=== PATIENT | female | born 1980 | race Caucasian/White ===

== ENCOUNTER 2016-09-01 19:04 | Day surgery (SDC) | payer BC ==
[2016-09-01] MEDS ORDERED: LIDOCAINE 1% 2 ML VIAL ID PRN (19:35)
[2016-09-01] MEDS ORDERED: LACTATED RINGERS 1,000 ML IV SCH (19:35)
[2016-09-01] MEDS ORDERED: LORAZEPAM 2 MG/ML 1ML SDV IV PRN (19:35)
[2016-09-01 20:00] VITALS: BMI 44.6
[2016-09-01] MEDS ORDERED: IV START KIT ONE (20:01)
[2016-09-01] MEDS ORDERED: PUMP TUBING ONE (20:06)
[2016-09-01] MEDS: HYDROCODONE/ACETAMINOPHEN 5/325MG TABLET PO PRN ×2 (20:10→23:24)
[2016-09-01] MEDS ORDERED: DIPHENHYDRAMINE HCL 50 MG/1 ML VIAL IV SCH (21:00)
[2016-09-01] MEDS ORDERED: MISOPROSTOL 200 MCG TABLET VG ONE (23:30)
[2016-09-02] MEDS ORDERED: OXYTOCIN IN LR 500 ML IV ONE ×3 (02:16→02:33)
[2016-09-02] MEDS ORDERED: LACTATED RINGERS 1,000 ML ONE (07:27)
[2016-09-02] MEDS ORDERED: FENTANYL 100 MCG/2 ML VIAL ONE (09:36)
[2016-09-02] MEDS ORDERED: MIDAZOLAM HCL 1 MG/ML 2ML VIAL ONE (09:36)
[2016-09-02] MEDS ORDERED: MISOPROSTOL 200 MCG TABLET ONE (09:39)
[2016-09-02] MEDS ORDERED: OXYTOCIN 10 UNITS/ML VIAL ONE ×2 (09:39→10:05)
[2016-09-02] MEDS ORDERED: METHYLERGONOVINE MALEATE 0.2 MG/ML 1ML AMP ONE (09:40)
[2016-09-02] MEDS ORDERED: PROPOFOL 20 ML IV ONE (09:48)
[2016-09-02] MEDS ORDERED: DEXAMETHASONE SOD PHOS 4 MG/1 ML VIAL ONE (09:48)
[2016-09-02] MEDS ORDERED: ONDANSETRON 4 MG/2ML 2 ML VIAL ONE (09:48)
[2016-09-02] MEDS ORDERED: CEFAZOLIN SODIUM 1,000 MG VIAL ONE (10:05)
[2016-09-02] MEDS ORDERED: LABETALOL HCL 5 MG/ML 20ML VIAL IV PRN (10:07)
[2016-09-02] MEDS ORDERED: ATROPINE SULFATE 0.4 MG/1 ML VIAL IV PRN (10:07)
[2016-09-02] MEDS ORDERED: HYDROMORPHONE HCL 1 MG/ML SYRINGE IV PRN (10:07)
[2016-09-02] MEDS ORDERED: MEPERIDINE 25 MG/ML SYRINGE IV PRN (10:07)
[2016-09-02] MEDS ORDERED: PROMETHAZINE HCL 25 MG/ML VIAL IM PRN (10:07)
[2016-09-02] MEDS ORDERED: HYDRALAZINE HCL 20 MG/1 ML VIAL IV PRN (10:07)
[2016-09-02] MEDS ORDERED: ONDANSETRON 4 MG/2ML 2 ML VIAL IV PRN (10:07)
[2016-09-02] MEDS ORDERED: FENTANYL 100 MCG/2 ML VIAL IV PRN (10:07)
[2016-09-02] MEDS ORDERED: NALOXONE HCL 0.4 MG/ML VIAL IV PRN (10:07)
[2016-09-02] MEDS ORDERED: LACTATED RINGERS 1,000 ML IV SCH ×2 (10:15→10:50)
--- NOTE | 2016-09-02 10:33 | PDOC36 ---
Provider Note Subject: GAS ENGINE MECHANIC note Note: Pt admitted overnight for misoprostol pretreatment for demise at 13w. 400mcg misoprostol placed PV, and pt then had passed tissue spontaneously at 2a. However still having some bleeding. Recommended to proceed with suction D& C to confirm that no further retained products remained. Procedure indication and risks have been reviewed prior to procedure.
[2016-09-02] MEDS ORDERED: OXYCODONE/ACETAMINOPHEN 5/325 MG TABLET PO PRN (10:50)
[2016-09-02] MEDS ORDERED: KETOROLAC TROMETHAMINE 30 MG/ML 1 ML VIAL IV PRN (10:50)
[2016-09-02 12:17] LABS: HEMATOCRIT 36.8 % (37.0-47.0); HEMOGLOBIN 12.3 gm/l (12.0-16.0); MEAN CELL VOLUME 88.9 fl (81.0-99.0); MEAN CORPUSCULAR HEMOGLOBIN 29.7 pg (27.0-31.0); MEAN CORPUSCULAR HGB CONC 33.4 g/dl (33.0-37.0)
[2016-09-02 13:32] VITALS: BP 119/69
--- NOTE | 2016-09-02 16:23 | HP ---
AILEEN SARMIENTO [id number] DATE OF ADMISSION: 09/01/2016 ADMITTING DIAGNOSIS: demise at 13 weeks of gestation. PROCEDURE: SUCTION DILATION AND CURETTAGE. HISTORY OF PRESENT ILLNESS: The patient is a 35-year-old G-2, P-1 who is 17 weeks by last menstrual period, as well as early obstetric ultrasound. The patient had a previous ultrasound at 12 weeks plus two days, with positive heart tones on 07/28/2016. The patient was subsequently followed, however, was seen in clinic complaining of spotting. Ultrasound in the office was inconclusive and therefore the patient was sent to diagnostic imaging where a demise was noted, with measurements of 13 weeks plus one day. The patient has had a history of caesarian section times one. The patient was subsequently admitted for pretreatment with misoprostol in preparation for suction dilation and curettage, and 400 mcg of misoprostol were then placed, however, subsequently the patient did end-up passing tissue consistent with fetus at 2:00 A.M., however, was still having some bleeding, and plans to proceed with suction dilatation and curettage for incomplete SAB. PAST ASSOCIATE ENGINEER HISTORY: The patient has had caesarian section times one. PAST MEDICAL HISTORY: Negative. ALLERGIES: The patient states she has allergies to Septra and amoxicillin. PHYSICAL EXAMINATION: GENERAL: The patient is alert and appropriate. HEART: Regular rate and rhythm. LUNGS: Clear to auscultation bilaterally. ABDOMEN: Nondistended and nontender. PELVIC: Cervix is slightly dilated. There is a minimal amount of bleeding at this time, however, no tissue at the cervical os. EXTREMITIES: Exam is normal. ASSESSMENT/PLAN: This is a G-2, P-1 with demise, status post incomplete SAB with misoprostol. We will proceed with dilatation and curettage to remove any remaining products of conception. The procedure, indications and risks have been reviewed including the risks of bleeding, infection and uterine perforation. Preoperative instructions and postoperative expectations have been reviewed. The patient is confirmed to have blood type of A+.
--- NOTE | 2016-09-03 00:15 | OP ---
AILEEN SARMIENTO [id number] DATE OF PROCEDURE: 09/02/2016 PREOPERATIVE DIAGNOSES: 1. demise at 13 weeks. 2. Incomplete SAB. POSTOPERATIVE DIAGNOSES: 1. demise at 13 weeks. 2. Incomplete SAB. PROCEDURE: SUCTION DILATATION AND CURETTAGE. SURGEON: Dr. Kris Thurston ANESTHESIA: General. ESTIMATED BLOOD LOSS: 100 mL COMPLICATIONS: None. OPERATIVE FINDINGS: Include a dilated cervix. There were products of conception noted upon suction curettage. OPERATIVE COURSE: The patient is taken to the OR and placed under general anesthesia. The patient was then placed in lithotomy and prepped and draped in a sterile fashion. The bladder was emptied with a straight catheter. A weighted speculum was then placed and the anterior cervix was grasped with a single tooth tenaculum. The cervix was already dilated and was therefore able to accommodate a #12 suction curette. A curette was then placed in the fundus and suction was then started, and using a rotating motion the intrauterine contents were withdrawn. There was clear white contents which were withdrawn at this time. This was repeated times two and then gentle sharp curettage was performed which revealed no further contents. There was no evidence of perforation. Therefore a second round of suction curettage was then performed. There was no further tissue. The instruments were then removed and the uterus was gently massaged. The patient was then recovered from anesthesia and taken to the recovery room in stable condition.
--- NOTE | 2016-09-06 15:42 | SURGPATH ---
[facility] [address] [place] [id number] Patient Name: AILEEN SARMIENTO MR#: [id number] : 1980 Gender: F Specimen #: [id number] Collected: 09/02/2016 Received: 09/05/2016 Reported: 09/06/2016 Submitting Phys: TR LOCKE Copy To Phys: [facility] Clinical History / Pre-Operative Diagnosis: DEMISE; MISSED Specimen Source / Surgical Procedure Performed: UTERINE CONTENTS Interpretation: UTERINE CONTENTS, PROCEDURE NOT SPECIFIED: - CHORIONIC VILLI, DECIDUALIZED TISSUE AND SECRETORY ENDOMETRIUM, CONSISTENT WITH PRODUCTS OF CONCEPTION Electronically Signed Out Anh Belle M.D. Gross Description: The specimen is received in a formalin filled container labeled with the patient's name and "uterine contents". An aggregate of puckett tissue admixed with hemorrhagic material is 7.0 x 6.0 x 2.0 cm. There is no grossly appreciated or placental tissue. Account Classification Clerk tissue is submitted in cassettes A-D. Juan Luis Garza PTonio Microscopic Description: Sections show decidualized stroma, secretory endometrium, and chorionic villi lacking pathologic trophoblastic proliferation or central cisterns. 1: [id number] O02.1
== END 2016-09-02 14:00 | disposition home or self-care (01) ==
LOC: SDC 19:04 → MS 19:30 → SDC 09-02 14:00
PROVIDERS: ATTEND Obstetrics & Gynecology
PROC: 10D07Z8 Extraction of Products of Conception, Other, Via Natural or Artificial Opening (ICD-10-PCS; principal; 2016-09-02)
DX: O03.4 Incomplete spontaneous abortion without complication (principal); Z3A.13 13 weeks gestation of pregnancy
CPT/HCPCS: 85027; 86901; 86850 ×3; 59812; J0690; J2060; J1200; J3010; J1100; J2590 ×4; J2250; J2405; J7120 ×2; A9270 ×3